=== PATIENT | female | born 2000 ===

== ENCOUNTER 2023-11-15 11:05 | Outpatient (REF) | payer OTHER, SELFPAY ==
[2023-11-15 14:12] LABS: Basophils Percent Auto 0.6 % (0-2); Eosinophils Percent Auto 0.9 % (0-4); Hematocrit 42.1 % (37.0-47.0); Hemoglobin 14.1 g/dl (12.0-16.0); Imm Gran Abs Auto 0.02 X10*3/uL (0.00-0.03); Imm Gran Pct Auto 0.4 % (0.0-0.4); Lymphocytes Absolute Auto 1.3 X10*3/uL (1.2-4.9); MANUAL DIFF FLAG SCAN; Mean Corpuscular HGB Conc 33.5 g/dl (31.0-35.0); Mean Corpuscular Volume 92.5 fL (80.0-98.0); Monocytes Absolute Auto 0.2 X10*3/uL (0.1-1.2); Monocytes Percent Auto 4.1 % (2-11); Neutrophils Absolute Auto 3.1 x10*3/uL (2.0-8.3); PLT CLUMP 1; Red Blood Count 4.55 X10*6/uL (4.20-5.50); Red Cell Distribution Width 11.6 % (11.0-16.0); SCAN SMEAR FLAG 1
[2023-11-15 14:23] LABS: Alanine Aminotransferase 24 U/L (0-31); Albumin Level 4.6 g/dL (3.5-5.0); Alkaline Phosphatase 60 U/L (39-117); Anion Gap 12 (12-20); Aspartate Amino Transferase 22 U/L (5-31); Bilirubin Total 0.5 mg/dL (0.0-1.0); Blood Urea Nitrogen 14 mg/dL (9-16); Calcium 9.9 mg/dL (8.4-10.2); Carbon Dioxide 27 mmol/L (22-29); Chloride 106 mmol/L (96-108); Estimated Glomerular Filt Rate > 60; Glucose Random 84 mg/dL (60-115); Potassium 3.7 mmol/L (3.3-5.1); Sodium 141 mmol/L (135-145); Total Protein 7.8 g/dL (6.5-8.0)
[2023-11-15 14:46] LABS: Mean Platelet Volume 13.8 fL (9.4-12.3); Platelet Count 142 X10*3/uL (160-400); SLIDE REVIEW VERIFIED; White Blood Count 4.7 X10*3/uL (4.8-10.8)
[2023-11-18 08:30] LABS: HBS Num1 20.35 mIU/mL (0-7.99); HBsAGNum1 0.42 S/CO (0.00-0.99); HIV AB/AG Nonreactive (Nonreactive); HIV Num 1 0.06 S/CO (0.00-0.99); Hepatitis B Surface Antigen Negative (Negative); ~HepC Num1 0.12 S/CO (0.00-0.79); ~Hepatitis B Surface Antibody REACTIVE (Nonreactive); ~Hepatitis C Antibody Nonreactive (Nonreactive)
[2023-11-18 08:38] LABS: Hepatitis A Antibody IgG REACTIVE (Nonreactive); ~Hepatitis A Antibody IgG 9.74 S/CO (0.00-0.99)
[2023-11-18 08:47] LABS: Syphilis Screen Nonreactive (Nonreactive)
[2023-11-18 22:34] LABS: TS Negative Control Passed; TS Panel A 3; TS Panel B 1; TS Positive Control Passed; TSpotTB Negative (Negative)
[2023-11-19 21:33] LABS: Glucose-6-Phosphate Dehydrogen 16.3 U/g Hgb (7.0-20.5)
== END 2023-11-15 11:06 | disposition home or self-care (01) ==
LOC: HO.HHCL 11:05
PROVIDERS: Visit Provider Family Medicine
DX: N91.5 Oligomenorrhea, unspecified (principal); Z71.84 Encounter for health counseling related to travel; Z11.3 Encounter for screening for infections with a predominantly sexual mode of transmission; Z01.84 Encounter for antibody response examination; Z11.1 Encounter for screening for respiratory tuberculosis
CPT/HCPCS: 36415; 80053; 82955; 85025; 86481; 86706; 86708; 86780; 86803; 87340; 87389

== ENCOUNTER 2025-02-22 11:14 | Outpatient (REF) | payer OTHER, SELFPAY ==
--- OUTSIDE RECORDS SUMMARY | 2025-02-22 10:30 | XMS_ITS | Encounter Summary ---
Author Organization [employer] Address [address] [place] [address] [address] [place] [address] Care Team Providers Care Certified Energy Manager Name Role Phone Aditi Nguyen MD Primary Care Provider [phone] Reason for Referral * Imaging (Urgent) - Authorized Specialty Diagnoses / Procedures Referred By aTylor real Referred To Contact Radiology Diagnoses Family history of breast cancer in mother Procedures BI US Breast Complete Right Aditi Nguyen MD [address] [place] [address] Phone: tel: fax: [address] [address] Phone: tel: fax: Referral ID Status Reason Start Date Expiration Date V isits Requested Visits Authorized [id number] Authorized 02/22/2025 02/22/2026 1 1 * Imaging (Urgent) - Authorized Specialty Diagnoses / Procedures Referred By [place] real Referred To Contact Radiology Diagnoses Family history of breast cancer in mother Procedures BI US Breast Complete Left Aditi Nguyen MD [address] [place] [address] Phone: tel: fax: [address] [address] Phone: tel: fax: Referral ID Status Reason Start Date Expiration Date V isits Requested Visits Authorized [id number] Authorized 02/22/2025 02/22/2026 1 1 * Consultation (Urgent) - Closed Specialty Diagnoses / Procedures Referred By [place] real Referred To Contact Breast Surgery Diagnoses Family history of breast cancer in mother Aditi Nguyen MD [address] [place] [address] Phone: tel: fax: [facility] [address] [place], [place] Phone: tel: fax: Referral ID Status Reason Start Date Expiration Date V isits Requested Visits Authorized [id number] Closed Specialty Services Required 02/22/2025 02/22/2026 1 1 Encounter Details Date Type Department Care Team (Late st Contact Info) Description 02/22/2025 10:30 AM EST Office Visit [facility] [address] [place] [id number] Aditi Nguyen MD [address] [place] [address] Routine general medical examination at a health care facility (Primary Dx); Family history of breast cancer in mother; Thrombocytopenia (CMS/HCC); Immunity status testing; Encounter for screening for respiratory tuberculosis; Routine screening for STI (sexually transmitted infection); Irregular menstruation; Mild intermittent asthma without complication; Screening for lipid disorders; Rash; Thrombocytopenia associated with severe acute respiratory syndrome coronavirus 2 (SARS-CoV-2) infection; Intrinsic atopic dermatitis Social History Tobacco Use Types Packs/Day Years Used Date Smoking Tobacco: Never Passive Smoke Exposure: Never Smokeless Tobacco: Never Depression Answer Date Recorded Patient Health Questionnaire-9 Score 0 02/22/2025 Patient Health Questionnaire-9 Score 0 02/22/2025 Last PHQ-9: Questionnaire Data Not on file 1 04/25/2024 Housing Stability Answer Date Recorded What is your housing situation today? I have perla barfield 02/22/[address] you li ve. Do you have problems with any of the following? None of the above 02/22/2025 Food Insecurity Answer Date Recorded Within the past 12 months, y ou worried that your food would run out before you got money to buy more: Never True 02/22/2025 Within the past 12 months,th e food you bought just didn't last and you didn't have enough money to get more: Never True Transportation Answer Date Recorded In the past 12 months, has l ack of transportation kept you from medical appts, meetings, work or from getting things needed for daily living? No 02/22/2025 Utilities Answer Date Recorded In the past 12 months, has t he electric, gas, oil or water company threatened to shut off services in your home? No 02/22/2025 Depression Answer Date Recorded Patient Health Questionnaire-2 Score 0 02/22/2025 Internet Access Answer Date Recorded Internet Access Q1 Yes 02/22/2025 Internet Access Q2 Not on file 02/22/2025 Comments No Sex and Gender Information Value Date Recorded Sex Assigned at Female 09/03/2022 9:51 AM EDT Legal Sex Female 8:57 AM EDT Gender Identity Female 09/03/2022 9:51 AM EDT Sexual Orientation Straight 09/03/2022 9: 51 AM EDT documented as of this encounter Last Filed Vital Signs Vital Sign Reading Time Taken Comments Blood Pressure 100/70 02/22/2025 10:38 AM EST Pulse 80 02/22/2025 10:38 AM EST Temperature 36 C (96.8 F) 02/22/2025 10:38 AM EST Respiratory Rate 16 02/22/2025 10:38 AM EST Oxygen Saturation 99% 02/22/2025 10:38 AM EST Inhaled Oxygen Concentration - - Weight 55.6 kg (122 lb 8 oz) 02/22/2025 10:38 AM EST Height 154.1 cm (5' 0.68 ) 02/22/2025 10:[address] Body Mass Index 23.39 02/22/2025 10:38 AM EST documented in this encounter Functional Status * Over the past 2 weeks, how often have you been bothered by any of the following problems? Question Answer Date of Assessment Author Patient Health Questionnaire -2 Score 0 02/22/2025 10:38 AM EST Rolando Espinoza, DIVYA * Little interest or pleasure in doing things Answer Date of Assessment Author Not at all 02/22/2025 10:38 AM Elina Nelson MA * Feeling down, depressed, or hopeless Answer Date of Assessment Author Not at all 02/22/2025 10:38 AM Elina Nelson MA * Trouble falling or staying asleep, or sleeping too much Answer Date of Assessment Author Not at all 02/22/2025 10:38 AM Elina Nelson MA * Feeling tired or having little energy Answer Date of Assessment Author Not at all 02/22/2025 10:38 AM Elina Nelson MA * Poor appetite or overeating Answer Date of Assessment Author Not at all 02/22/2025 10:38 AM Elina Nelson MA * Feeling bad about yourself - or that you are a failure or have let yourself or your family down Answer Date of Assessment Author Not at all 02/22/2025 10:38 AM Elina Nelson MA * Trouble concentrating on things, such as reading the newspaper or watching television Answer Date of Assessment Author Not at all 02/22/2025 10:38 AM Elina Nelson MA * Moving or speaking so slowly that other people could have noticed? Or the opposite - being so fidgety or restless that you have been moving around a lot more than usual. Answer Date of Assessment Author Not at all 02/22/2025 10:38 AM Elina Nelson MA * Thoughts that you would be better off or hurting yourself in some way Answer Date of Assessment Author Not at all 02/22/2025 10:38 AM Elina Nelson MA * Patient Health Questionnaire-9 Score Answer Date of Assessment Author 0 02/22/2025 10:38 AM Elina Nelson MA documented as of this encounter Plan of Treatment Scheduled Orders Name Type Priority Associated Diagnoses Orde r Schedule CBC auto differential Lab Routine Rash Thrombocytopenia associated with severe acute respiratory syndrome coronavirus 2 (SARS-CoV-2) infection Expected: 02/22/2025 (Approximate), Expires: 02/22/2026 Comprehensive Metabolic Panel Lab Routine Rash Expected: 02/22/2025 (Approximate), Expires: 02/22/2026 Lipid Panel with Reflex to Direct LDL Lab Routine Screening for lipid disorders Expected: 02/22/2025 (Approximate), Expires: 02/22/2026 Immunoglobulin E Lab Routine Rash Expected: 02/22/2025 (Approximate), Expires: 02/22/2026 BI US Breast Complete Left Imaging Urgent Family history of breast cancer in mother Expected: 02/22/2025, Expires: 02/22/2026 BI US Breast Complete Right Imaging Urgent Family history of breast cancer in mother Expected: 02/22/2025, Expires: 02/22/2026 Scheduled Referrals Name Type Priority Associated Diagnoses Orde r Schedule Referral to Breast Clinic Outpatient Referral Urgent Family history of breast cancer in mother Expected: 02/22/2025 (Approximate), Expires: 02/22/2026 documented as of this encounter Visit Diagnoses Diagnosis Routine general medical examination at a health care facility- Primary Family history of breast cancer in mother Family history of malignant neoplasm of breast Thrombocytopenia (CMS/HCC) Unspecified thrombocytopenia Immunity status testing Antibody response examination Encounter for screening for respiratory tuberculosis Routine screening for STI (sexually transmitted infection) Screening examination for venereal disease Irregular menstruation Irregular menstrual cycle Mild intermittent asthma without complication Screening for lipid disorders Rash Rash and other nonspecific skin eruption Thrombocytopenia associated with severe acute respiratory syndrome coronavirus 2 (SARS-CoV-2) infection Intrinsic atopic dermatitis documented in this encounter Additional Health Concerns Assessment Noted Time PHQ-9 Depression Total Score: 0 02/23/20 25 10:38 AM EST documented as of this encounter Care Teams Certified Energy Manager Relationship Specialty Start Date End Date Aditi Nguyen MD [address] [place] [phone] PCP - General Family Medicine 07/02/22 documented as of this encounter
[2025-02-22 13:57] LABS: Hematocrit 41.7 % (37.0-47.0); Hemoglobin 13.5 g/dl (12.0-16.0); Imm Gran Abs Auto 0.02 X10*3/uL (0.00-0.03); Imm Gran Pct Auto 0.4 % (0.0-0.4); Lymphocytes Absolute Auto 1.3 X10*3/uL (1.2-4.9); MANUAL DIFF FLAG SCAN; Mean Corpuscular HGB Conc 32.4 g/dl (31.0-35.0); Mean Corpuscular Hemoglobin 31.1 pg (27.0-33.0); Mean Corpuscular Volume 96.1 fL (80.0-98.0); NRBC Abs Auto 0.000 X10*3/uL (0.0-0.012); NRBC Pct Auto 0.0 /100WBC (0.0-0.2); PLT CLUMP 1; Red Blood Count 4.34 X10*6/uL (4.20-5.50); SCAN SMEAR FLAG 1
[2025-02-22 14:00] LABS: White Blood Count 5.3 X10*3/uL (4.8-10.8)
--- OUTSIDE RECORDS SUMMARY | 2025-02-22 14:20 | XMS_ITS ---
Author Name [facility] Organization Unknown Care Team Organization Name Specialty Phone Email Start Date End Da surya [facility] 202010/21/2023 [facility] 202010/13/2020
--- OUTSIDE RECORDS SUMMARY | 2025-02-22 14:20 | XMS_ITS | Encounter Summary ---
Author Organization [employer] Address [address] [place] [address] Care Team Providers Care Compensation Coordinator Name Role Phone Aditi Nguyen MD Primary Care Provider [phone] Reason for Referral * Consultation (Routine) - Closed Specialty Diagnoses / Procedures Referred By [place] real Referred To Contact Genetics Diagnoses Family history of breast cancer in mother Aditi Nguyen MD [address] [place] [address] Phone: tel: fax: [facility] [address] [place], [place] Phone: tel: fax: Referral ID Status Reason Start Date Expiration Date V isits Requested Visits Authorized [id number] Closed Specialty Services Required 02/18/2025 02/18/2026 1 1 Encounter Details Date Type Department Care Team (Late st Contact Info) Description 02/18/2025 Orders Only [facility] [address] [place], [place] [phone] Aditi Nguyen MD [address] [place], [place] [phone] Family history of breast cancer in mother (Primary Dx) Social History Tobacco Use Types Packs/Day Years [...] Access Q2 Not on file 02/22/2025 Comments Unknown Sex and Gender Information Value Date Recorded Sex Assigned at Female 09/03/2022 9:51 AM EDT Legal Sex Female 8:57 AM EDT Gender Identity Female 09/03/2022 9:51 AM EDT Sexual Orientation Straight 09/03/2022 9: 51 AM EDT documented as of this encounter Plan of Treatment Scheduled Referrals Name Type Priority Associated Diagnoses Orde r Schedule Referral to Genetics Outpatient Referral Routine Family history of breast cancer in mother Expected: 02/18/2025 (Approximate), Expires: 02/18/2026 documented as of this encounter Visit Diagnoses Diagnosis Family history of breast cancer in mother- Primary Family history of malignant neoplasm of breast documented in this encounter Additional Health Concerns Assessment Noted Time PHQ-9 Depression Total Score: 0 11/15/19 24 10:00 AM EDT documented as of this encounter Care Teams Compensation Coordinator Relationship Specialty Start Date End Date Aditi Nguyen MD [address] [place] [address] PCP - General Family Medicine 07/02/22 documented as of this encounter
--- OUTSIDE RECORDS SUMMARY | 2025-02-22 14:20 | XMS_ITS | Clinical Summary ---
Author Organization [facility] Address [address] [address] Phone Care Team Providers Care Animal Behaviorist Name Role Phone Unavailable Primary Care Provider Unavailabl e Allergies No known active allergies Medications No known medications Social History Tobacco Use Types Packs/Day Years Used Date Smoking Tobacco: Never Assessed Education Answer Date Recorded Are you interested in more education? Not on mark e 06/29/2022 Are you concerned about learning? Not on file 06/29/2022 No 06/29/2022 No 06/29/2022 Digital Access Answer Date Recorded No 07/28/2022 No 07/28/2022 No 07/28/2022 Reliable internet access at home? Not on file 07/28/2022 Device with a working camera? Not on file Comments Unknown Sex and Gender Information Value Date Recorded Sex Assigned at Female 11/29/2018 12:01 AM EDT Legal Sex Female 11:54 PM EDT Gender Identity Female 11/29/2018 12:01 AM EDT Sexual Orientation Not on file Last Filed Vital Signs Vital Sign Reading Time Taken Comments Blood Pressure 109/64 11/29/2018 6:36 AM EDT Pulse 82 11/29/2018 6:36 AM EDT Temperature 36.5 C (97.7 F) 11/29/2018 12:00 AM EDT Respiratory Rate 18 11/29/2018 6:36 AM EDT Oxygen Saturation 98% 11/29/2018 6:36 AM EDT Inhaled Oxygen Concentration - - Weight 45.4 kg (100 lb) 11/29/2018 12:00 AM EDT Height 157.5 cm (5' 2 ) 11/29/2018 12:00 AM EDT Body Mass Index 18.29 11/29/2018 12:00 AM EDT Plan of Treatment Health Maintenance Due Date Last Done Comments Adult Td,Tdap Booster 2000 DEPRESSION SCREENING 2012 SMOKING Hx and SMOKELESS TOBACCO SCREENING 2013 HPV VACCINES (1 - 3-dose series) 08/02/2015 CHLAMYDIA SCREENING 2016 HEPATITIS C SCREENING 2018 HIV ONE-TIME SCREENING (18-65 YEARS) 2018 HEPATITIS A VACCINES (2 of 2 - 2-dose series) 11/18/2019 05/18/2019 MENINGOCOCCAL VACCINES (B) (2 of 2 - Bexsero SCDM 2-dose series) 11/18/2019 05/18/2019 PAP SMEAR 2021 INFLUENZA VACCINE (#1) 2024 0, 04/19/2009, 02/18/2009, Additional history exists COVID-19 VACCINE ( - season) 2024 06/04/2020 HIB VACCINES Completed 02/16/2002, 02/01, 2000, Additional history exists PNEUMOCOCCAL VACCINES (0-49 years) Aged Out 09/08/2004, 2000, 2000 No longer eligible based on patient's age to complete this topic MENINGOCOCCAL VACCINES (ACWY) Aged Out No longer eligible based on patient's age to complete this topic Medical Devices Not on file Insurance [facility] [place] [id number] [facility] [place]ita re[place] [id number] [facility] Additional Source Comments The information contained in this document represents components of the legal health record. It is not the complete legal health record.[facility]
--- OUTSIDE RECORDS SUMMARY | 2025-02-22 14:20 | XMS_ITS | Encounter Summary ---
Author Organization [facility] Address [address] [place] [address] Phone Care Team Providers Care Risk Control Specialist Name Role Phone Devan Tracy MD Primary Care Provider [phone] Encounter Details Date Type Department Care Team (Late st Contact Info) Description 10/17/2010 Conversion Encounter [facility] [address] [place] [address] [place] [address] Social History Tobacco Use Types Packs/Day Years Used Date Smoking Tobacco: Never Assessed Comments Unknown Sex and Gender Information Value Date Recorded Sex Assigned at Not on file Legal Sex Female 6:37 PM EDT Gender Identity Not on file Sexual Orientation Not on file documented as of this encounter Plan of Treatment Not on file documented as of this encounter Visit Diagnoses Not on filedocumented in this encounter Care Teams Risk Control Specialist Relationship Specialty Start Date End Date Devan Tracy MD [address] [place] [address] [place] [address] PCP - General 07/10/17 documented as of this encounter
--- OUTSIDE RECORDS SUMMARY | 2025-02-22 14:20 | XMS_ITS | Encounter Summary ---
Author Organization [employer] Address [address] [place] [address] [address]t [place] [address] Care Team Providers Care Greenhouse Transplanter Name Role Phone Aditi Nguyen MD Primary Care Provider [phone] Encounter Details Date Type Department Care Team (Late st Contact Info) Description 09/06/2022 Orders Only [facility] [address] [place], [place] [phone] Aditi Nguyen MD [address] [place], [place] [phone] Leukopenia, unspecified type (Primary Dx); Thrombocytopenia (CMS/HCC) Social History Tobacco Use Types Packs/Day Years Used Date Smoking Tobacco: Never Passive Smoke Exposure: Never Smokeless Tobacco: Never Depression Answer Date Recorded Patient Health Questionnaire-9 Score 0 09/03/2022 Depression Answer Date Recorded Patient Health Questionnaire-2 Score 0 09/03/2022 Comments Unknown Sex and Gender Information Value Date Recorded Sex Assigned at Female 09/03/2022 9:51 AM EDT Legal Sex Female 8:57 AM EDT Gender Identity Female 09/03/2022 9:51 AM EDT Sexual Orientation Straight 09/03/2022 9: 51 AM EDT COVID-19 Exposure Response Date Recorded In the last 10 days, have yo u been in contact with someone who was confirmed or suspected to have Coronavirus/COVID-19? No / Unsure 09/03/2022 9:49 AM EDT documented as of this encounter Plan of Treatment Scheduled Orders Name Type Priority Associated Diagnoses Orde r Schedule CBC (includes Differential and Platelets) with Smear Review Lab Routine Leukopenia, unspecified type Thrombocytopenia (CMS/HCC) Expected: 09/06/2022 (Approximate), Expires: 09/07/2023 Vitamin B12/Folate, Serum Panel Lab Routine Leukopenia, unspecified type Thrombocytopenia (CMS/HCC) Expected: 09/06/2022 (Approximate), Expires: 09/07/2023 documented as of this encounter Visit Diagnoses Diagnosis Leukopenia, unspecified type- Primary Thrombocytopenia (CMS/HCC) Unspecified thrombocytopenia documented in this encounter Additional Health Concerns Assessment Noted Time PHQ-9 Depression Total Score: 0 09/04/19 10:20 AM EDT documented as of this encounter Care Teams Greenhouse Transplanter Relationship Specialty Start Date End Date Aditi Nguyen MD [address] [place] [address] PCP - General Family Medicine 07/02/22 documented as of this encounter
--- OUTSIDE RECORDS SUMMARY | 2025-02-22 14:20 | XMS_ITS | Encounter Summary ---
Author Organization [employer] Address [address] [facility] [address] [place] [address] Care Team Providers Care Manager Activities Name Role Phone Aditi Nguyen MD Primary Care Provider [phone] Encounter Details Date Type Department Care Team (Late st Contact Info) Description 11/19/2023 Orders Only [facility] [address] [place], [place] [phone] Adiit Nguyen MD [address] [place], [place] [phone] Irregular menstruation (Primary Dx); Thrombocytopenia (CMS/HCC); Leukopenia, unspecified type Social History Tobacco Use Types Packs/Day Years Used Date Smoking Tobacco: Never Passive Smoke Exposure: Never Smokeless Tobacco: Never Depression Answer Date Recorded Patient Health Questionnaire-9 Score 0 11/15/2023 Patient Health Questionnaire-9 Score 0 11/15/2023 Last PHQ-9: Questionnaire Data Not on file 0 11/15/2023 Housing Stability Answer Date Recorded What is your housing situation today? I have perla barfield 11/15/[address] you li ve. Do you have problems with any of the following? None of the above 11/15/2023 Food Insecurity Answer Date Recorded Within the past 12 months, y ou worried that your food would run out before you got money to buy more: Never True 11/15/2023 Within the past 12 months,th e food you bought just didn't last and you didn't have enough money to get more: Never True Transportation Answer Date Recorded In the past 12 months, has l ack of transportation kept you from medical appts, meetings, work or from getting things needed for daily living? No 11/15/2023 Utilities Answer Date Recorded In the past 12 months, has t he electric, gas, oil or water company threatened to shut off services in your home? No 11/15/2023 Depression Answer Date Recorded Patient Health Questionnaire-2 Score 0 11/15/2023 Internet Access Answer Date Recorded Internet Access Q1 Yes 11/15/2023 Internet Access Q2 Not on file 11/15/2023 Comments Unknown Sex and Gender Information Value Date Recorded Sex Assigned at Female 09/03/2022 9:51 AM EDT Legal Sex Female 8:57 AM EDT Gender Identity Female 09/03/2022 9:51 AM EDT Sexual Orientation Straight 09/03/2022 9: 51 AM EDT documented as of this encounter Plan of Treatment Scheduled Orders Name Type Priority Associated Diagnoses Orde r Schedule CBC auto differential Lab Routine Thrombocytopenia (CMS/HCC) Leukopenia, unspecified type Irregular menstruation Expected: 11/19/2023 (Approximate), Expires: 11/18/2024 TSH with Reflex to Free T4 Lab Routine Thrombocytopenia (CMS/HCC) Leukopenia, unspecified type Irregular menstruation Expected: 11/19/2023 (Approximate), Expires: 11/18/2024 documented as of this encounter Visit Diagnoses Diagnosis Irregular menstruation- Primary Irregular menstrual cycle Thrombocytopenia (CMS/HCC) Unspecified thrombocytopenia Leukopenia, unspecified type documented in this encounter Additional Health Concerns Assessment Noted Time PHQ-9 Depression Total Score: 0 11/15/19 24 10:00 AM EDT documented as of this encounter Care Teams Manager Activities Relationship Specialty Start Date End Date Aditi Nguyen MD [address] [place] [address] PCP - General Family Medicine 07/02/22 documented as of this encounter
--- OUTSIDE RECORDS SUMMARY | 2025-02-22 14:20 | XMS_ITS | Clinical Summary ---
Author Organization [employer] Address [address] [facility] [address] [place] [address] Care Team Providers Care Diesel Retrofit Installer Name Role Phone Aditi Nguyen MD Primary Care Provider [phone] Allergies No known active allergies Medications albuterol 108 (90 Base) MCG/ACT inhaler Inhale 2 puffs every 6 (six) hours if needed for wheezing. Active cetirizine (ZyrTEC) 10 MG tablet Take 1 tablet (10 mg) by mouth Once per day. 90 tablet 3 5 02/23/20 26 Active triamcinolone (Kenalog) 0.1 % ointment Apply topically 2 times daily. 80 g 3 5 Active carbamide peroxide (Debrox) 6.5 % otic solution Administer 5-10 drops into affected ear(s) 2 times daily for 4 days. 30 mL 5 02/27/20 25 Active Active Problems Problem Noted Date Diagnosed Date Family history of breast cancer in mother 2024 Asthma 11/15/2023 Assessment & Plan (11/15/2023 11:49 AM EDT): - dormant / inactive since 2014 - continue albuterol HFA prn Irregular menstruation 09/03/2022 Assessment & Plan (11/15/2023 11:49 AM EDT): - Following with MEDIA LAW FACULTY MEMBER - recommend adequate nutritional intake Assessment & Plan (09/03/2022 11:02 AM EDT): Agreed to monitor at this time -will check labs Resolved Problems Problem Noted Date Diagnosed Date Resolved Date Health care maintenance 09/04/202211/02 Assessment & Plan (09/04/2022 10:57 AM EDT): - immunization record reviewed and updated - recommended to get bivalent COVID vaccine prior to the trip if she can - schedule MEDIA LAW FACULTY MEMBER exam - discussed about safety and preventative measure to stay healthy - age-appropriate screening test ordered Dietary counseling 09/03/2022 3 Encounters Date Type Department Care Team Description 02/22/2025 10:30 AM EST Office Visit [address] [address] Aditi Nguyen MD Routine general medical examination at a health care facility (Primary Dx); Family history of breast cancer in mother; Thrombocytopenia (CMS/HCC); Immunity status testing; Encounter for screening for respiratory tuberculosis; Routine screening for STI (sexually transmitted infection); Irregular menstruation; Mild intermittent asthma without complication; Screening for lipid disorders; Rash; Thrombocytopenia associated with severe acute respiratory syndrome coronavirus 2 (SARS-CoV-2) infection; Intrinsic atopic dermatitis 02/22/2025 Travel 02/18/2025 Orders Only [address] [address] Aditi Nguyen MD Family history of breast cancer in mother (Primary Dx) 02/12/2025 Patient Outreach [address] [address] Aditi Nguyen MD Pre-visit Planning (Pre-visit planning - not available ) 01/21/[address] [address] Aditi Nguyen MD from Last 3 Months Immunizations Immunization Administration Dates Next Due DTaP / Hib 02/16/2002 DTaP, 5 pertussis antigens 09/14/2005,,2000,10/07 DTaP, Unspecified 02/16/2002 HPV, Quadrivalent 05/08/2013,01/02/2013,10/28/19 13 Hep A, Adult 10/13/2020 Hep A, ped/adol, 2 dose 05/18/2019 Hep B, Adolescent or Pediatric 11/17/2001,2000,2000 Hep B, Unspecified 11/17/2001,02/10/2001, 001 HiB, unspecified 02/16/2002, 1,2000,10/07 IPV 11/21/2023, 6,09/14/2005,02/16,2000,2000 Influenza injectable quadriv alent preservative free 02/09/2022,02/02/2021,11/11/2019,05/17,11/11/2017,12/27/2016,12/01/2015 ,11/29/2014,12/18/2013,01/02/2013 Influenza, IIV3, injectable 12/19/2011, 0 Influenza, Unspecified 04/19/2009,03/26/2003, Influenza, seasonal, injecta ble, preservative free 11/15/2023,10/17/2010 MMR 09/14/2005,08/04/2001 Meningococcal B, Omv 05/18/2019,04/01/2018 Meningococcal MCV4P [id number] 02/05/2017,10/11/19 12 Novel [id number], all formulations 02/18/2009,12/25/2008 Pneumococcal Conjugate PCV 20 11/15/2023 Pneumococcal Conjugate PCV 7 09/08/2004, 02/10/2001,2000,12/09,2000 SARS-CoV-2, Unspecified 06/04/2020 Tdap 09/03/2022,10/11/2011 Varicella 10/11/2011,08/04/2001 Family History Medical History Relation Name Comments Asthma Brother Hypertension Maternal Grandmother Asthma Mother Breast cancer Mother Atrial fibrillation Paternal Grandfather Hypertension Paternal Grandfather Prostate cancer Paternal Grandfather metastatic cancer Paternal Grandfather renal cell cancer Paternal Grandfather Breast cancer Paternal Grandmother Hyperlipidemia Paternal Grandmother Hypertension Paternal Grandmother Relation Name Status Comments Brother Maternal Grandmother Mother Paternal Grandfather Paternal Grandmother Social History Tobacco Use Types Packs/Day Years Used Date Smoking Tobacco: Never Passive Smoke Exposure: Never Smokeless Tobacco: Never Tobacco Cessation:Counseling Given: Not Answered Depression Answer Date Recorded Patient Health Questionnaire-9 [...] Orientation Straight 09/03/2022 9: 51 AM EDT Last Filed Vital Signs Vital Sign Reading [...] Mass Index 23.39 02/22/2025 10:38 AM EST Plan of Treatment Health Maintenance Due Date Last Done Comments Family Planning (PISQ) 08/02/2015 Pap Smear 2021 COVID-19 Vaccine ( season) 2024 11/21/2023, 02/02/2021, 07/02/2020, Additional history exists Influenza Vaccine (#1) 2024 , 02/09/2022, 02/02/2021, Additional history exists Alcohol/Substance Use Screening 02/22/2026 02/22/2025 Depression Screening 02/22/2026 02/22/2025, 02/23/20 25 Disability Screening 02/22/2026 02/22/2025 SDOH Screening 02/22/2026 02/22/2025 Tobacco Screening 02/22/2026 02/22/2025 DTaP/Tdap/Td Vaccines (8 - Td or Tdap) 09/03/2032 09/03/2022, 10/11/2011, 09/14/2005, Additional history exists Zoster Vaccines (1 of 2) 2050 RSV Patients and Patients Aged 60 years or older (1 - 1-dose 75+ series) 08/02/2075 Hepatitis B Vaccines Completed 11/17/2001, 11/17/2001, 02/10/2001, Additional history exists HIB Vaccines Completed 02/16/2002, 02/01, 02/10/2001, Additional history exists HPV Vaccines Completed 05/08/2013, 11/0 03/2012, 10/27/2012 Meningococcal Vaccine Completed 02/05/2017, 012 Meningococcal B Vaccine Completed 05/18/2019, 04/01 Hepatitis A Vaccines Completed 10/13/2020, 05/18/19 20 HIV Screening Completed 11/15/2023, 09/03/2022 Hepatitis C Screening Completed 11/15/2023, 023 Pneumococcal Vaccine: Pediatrics (0 to 5 Years) and At-Risk Patients (6 to 49) Years Completed 11/15/2023, 09/08/2004, 02/10/2001, Additional history exists IPV Vaccines Completed 11/21/2023, 09/01, 09/14/2005, Additional history exists RSV under 20 months Aged Out No longe r eligible based on patient's age to complete this topic Rotavirus Vaccines Aged Out No longer eligible based on patient's age to complete this topic Procedures Procedure Name Priority Date/Time Associated Diagnosis Comments HEPATITIS C AB W/REFL TO HCV RNA, QN, PCR Routine 11/15/2023 11:11 AM EDT Routine screening for STI (sexually transmitted infection) HIV 1/2 ANTIGEN/ANTIBODY, FOURTH GENERATION W/RFL Routine 11/15/2023 11:11 AM EDT Routine screening for STI (sexually transmitted infection) from Last 3 Months or Most Recently Relevant to Health Maintenance Results * Hepatitis C Antibody with Reflex to HCV, RNA, Quantitative, Real-Time PCR (11/15/2023 11:11 AM EDT) Hepatitis C Antibody Nonreactive Nonreactive [facility] Comment:Antibodies to HCV no t detected; does not exclude early acuteHCV infection. Blood Venous blood specimen / Unknown 11/15/2023 11:11 AM EDT 11/15/2023 1:41 PM EDT Aditi Nguyen MD LAB BLOOD ORDERABLES Final Resul t [facility] [address] [place] [phone] * HIV-1/2 Antigen and Antibodies, Fourth Generation, with Reflexes (11/15/2023 11:11 AM EDT) HIV AB/AG Nonreactive Nonreactive [facility] Comment:HIV-1 p24 Ag and/or HIV-1/HIV-2 Ab not detected.A test result that is nonreactive does not exclude thepossibility of exposure to or infection with HIV-1 and/orHIV-2. Nonreactive results in this assay for individualswith prior exposure to HIV-1 and/or HIV-2 may be due toantigen and antibody levels that are below the limit ofdetection of this assay.The He[employer] Alinity HIV Ag/Ab Combo assay result andsupplemental assay results should be interpreted inconjunction with the patient's clinical presentation,history and other laboratory results. If the results areinconsistent with clinical evidence, additional testing issuggested to confirm the result. Blood Venous blood specimen / Unknown 11/15/2023 11:11 AM EDT 11/15/2023 1:41 PM EDT Aditi Nguyen MD LAB BLOOD ORDERABLES Final Resul t [facility] [address] [place] [address] [phone] from Last 3 Months or Most Recently Relevant to Health Maintenance Insurance [facility] , [address] [place] [address] Care Teams Diesel Retrofit Installer Relationship Specialty Start Date End Date Aditi Nguyen MD [address] [place] [phone] PCP - General Family Medicine 07/02/22
--- OUTSIDE RECORDS SUMMARY | 2025-02-22 14:20 | XMS_ITS | Encounter Summary ---
Author Organization [employer] Address [address] [facility] [address] [place] [address] Care Team Providers Care Drill Instructor Name Role Phone Aditi Nguyen MD Primary Care Provider [phone] Encounter Details Date Type Department Care Team (Latest Contact Info) Description 02/22/2025 Travel Social History Tobacco Use Types Packs/Day Years [...] Diagnoses Not on filedocumented in this encounter Additional Health Concerns Assessment Noted Time PHQ-9 Depression Total Score: 0 02/23/20 25 10:38 AM EST documented as of this encounter Care Teams Drill Instructor Relationship Specialty Start Date End Date Aditi Nguyen MD [address] [place] [address] PCP - General Family Medicine 07/02/22 documented as of this encounter
--- OUTSIDE RECORDS SUMMARY | 2025-02-22 14:20 | XMS_ITS | Clinical Summary ---
Author Organization [facility] Address [address] [place], [place] [id number] Phone Care Team Providers Care Assistant Superintendent Name Role Phone Devan Tracy MD Primary Care Provider [phone] Immunizations Immunization Administration Dates Next Due DTaP / HiB 02/16/2002 DTaP 5 09/14/2005, 1,2000,2000 H1N1 Inj Preservative Free 02/18/2009,12/25/2008 Hep B, ped/adol 11/17/2001,02/10/2001,2000 Hib (PRP-T) 02/10/2001,2000,2000 IPV 09/16/2005, 2,2000,2000 Influenza, injectable, trivalent 10/17/2009 Influenza, injectable, triva lent, preservative free 10/17/2010 MMR 09/14/2005,08/04/2001 Pneumococcal Conjugate 09/08/2004,2000,2000,2000 Varicella 08/04/2001 Social History Tobacco Use Types Packs/Day Years Used Date Smoking Tobacco: Never Assessed Comments Unknown Sex and Gender Information Value Date Recorded Sex Assigned at Not on file Legal Sex Female 6:37 PM EDT Gender Identity Not on file Sexual Orientation Not on file Last Filed Vital Signs Vital Sign Reading Time Taken Comments Blood Pressure - - Pulse 86 10/17/2010 11:03 AM EDT Temperature - - Respiratory Rate - - Oxygen Saturation - - Inhaled Oxygen Concentration - - Weight 27.7 kg (61 lb) 10/17/2010 11:03 AM EDT Height 134 cm (4' 4.75 ) 10/17/2010 11:03 AM EDT Body Mass Index 15.41 10/17/2010 11:03 AM EDT Plan of Treatment Health Maintenance Due Date Last Done Comments Varicella Vaccines (2 of 2 - 2-dose childhood series) 10/12/2005 08/04/2001 DTaP,Tdap,and Td Vaccines (6 - Tdap) 08/02/2011 09/14/2005, 02/16/2002, 02/10/2001, Additional history exists HPV Vaccines (1 - 3-dose series) 08/02/2015 Influenza Vaccines (#1) 2024 10/17/2010, 10/17 COVID-19 Vaccine ( season) 2024 Hepatitis B Vaccines Completed 11/17/2001, 02/10/2001, 2000 HIB Vaccines Completed 02/16/2002, 02/01, 2000, Additional history exists Pneumococcal Vaccine Completed 09/08/2004, 02/10/2001, 2000, Additional history exists MMR Vaccines Completed 09/14/2005, 08/04/2001 IPV Vaccines Completed 09/16/2005, 02/01, 2000, Additional history exists Hepatitis A Vaccines Aged Out No long er eligible based on patient's age to complete this topic Men B Vaccine Aged Out No longer elig ible based on patient's age to complete this topic Meningococcal Vaccine Aged Out No marry oanh eligible based on patient's age to complete this topic Care Teams Assistant Superintendent Relationship Specialty Start Date End Date Devan Tracy MD [address] [place] [address] [place] [address] PCP - General 07/10/17
[2025-02-22 14:23] LABS: Platelet Count 149 X10*3/uL (160-400)
[2025-02-22 14:33] LABS: Alanine Aminotransferase 15 U/L (0-31); Albumin Level 4.3 g/dL (3.5-5.0); Alkaline Phosphatase 59 U/L (39-117); Anion Gap 10 (12-20); Aspartate Amino Transferase 28 U/L (5-31); Blood Urea Nitrogen 13 mg/dL (9-16); Calcium 9.3 mg/dL (8.4-10.2); Carbon Dioxide 28 mmol/L (22-29); Chloride 109 mmol/L (96-108); Cholesterol 132 mg/dL (<200); Estimated Glomerular Filt Rate > 60; HDL Cholesterol 48 mg/dL (>40); Potassium 4.0 mmol/L (3.3-5.1); Sodium 143 mmol/L (135-145); Total Protein 6.8 g/dL (6.5-8.0); Triglycerides 65 mg/dL (<150)
[2025-02-22 15:22] LABS: Reflex LDLD? No
== END 2025-02-22 11:15 | disposition home or self-care (01) ==
LOC: HO.HHCL 11:14
PROVIDERS: PCP Family Medicine; Visit Provider Family Medicine
DX: R21 Rash and other nonspecific skin eruption (principal); U07.1 COVID-19; D69.59 Other secondary thrombocytopenia; Z13.220 Encounter for screening for lipoid disorders; Z13.6 Encounter for screening for cardiovascular disorders
CPT/HCPCS: 36415; 80053; 80061; 82785; 85025